=== PATIENT | male | born 1970 | race Caucasian/White ===

== ENCOUNTER → 2023-12-06 | Outpatient (CLI) | payer OTHER ==
--- NOTE | 2023-12-06 22:00 | XR ---
EXAMINATION TYPE: XR knee complete bilateral DATE OF EXAM: 12/06/2023 COMPARISON: NONE HISTORY: 53-year-old male right knee injury at work one year ago with pain. Left knee clicking and ac cliff pain. TECHNIQUE: 3 views each side FINDINGS: Right: Mild degenerative spurring in the patellofemoral compartment. There is a trace knee joint effusion. E xtensor mechanism appears intact. No acute fracture, subluxation, dislocation. Left: Mild degenerative spurring in the patellofemoral compartment. Trace knee joint effusion. Extensor mec hanism appears intact. No acute fracture, subluxation, dislocation. IMPRESSION: Mild degenerative spurring the patellofemoral compartment on both sides. Nonspecific trace knee joint effusions. No acute osseous abnormality seen.
--- NOTE | 2023-12-06 22:02 | XR ---
EXAMINATION TYPE: XR wrist complete 4 views LT, XR hand complete 3 views LT DATE OF EXAM: 12/06/2023 COMPARISON: NONE HISTORY: 53-year-old male pain after fall years ago FINDINGS: Wrist: The radiocarpal and distal radial ulnar joint as well as the midcarpal compartment appear intact. No acute fracture, subluxation, dislocation. Hand: No marginal erosions. Normal bone mineral density. No soft tissue calcifications. No acute fracture, subluxation, dislocation. IMPRESSION: Left wrist and hand without acute osseous abnormality seen.
--- NOTE | 2023-12-06 22:05 | XR ---
EXAMINATION TYPE: XR chest 2V, XR shoulder complete 3 views RT DATE OF EXAM: 12/06/2023 COMPARISON: None HISTORY: 53-year-old male heart flutter. M25.511. Right shoulder pain after trauma, fall 5 years ago. FINDINGS: Chest: The cardiomediastinal silhouette, aorta, and pulmonary vasculature are within normal limits. Some str rosita atelectasis at the left base. Mild hyperinflation may relate to depth of inspiration. Otherwise, lungs and pleural spaces are clear. Right shoulder: 1. Appearance of the AC joint but no abnormal step-off. Possible osseous excrescence or small loose b ashish near the region of the bicipital groove just below the lesser tuberosity. No acute fracture, subl uxation, dislocation seen. IMPRESSION: 1. Chest: Mild hyperinflation may relate to ductal inspiration or underlying emphysema. Clinically co rrelate. Otherwise, no acute cardiopulmonary process. 2. Right shoulder: Widened appearance of the AC joint suggests sequela of prior AC joint injury/sprai n. There is also either a 6 mm bony excrescence or loose body near the region of the bicipital groove .
== END | disposition home or self-care (01) ==
LOC: RADXRMAIN 14:55
PROVIDERS: ATTEND Pediatrics
DX: M25.511 Pain in right shoulder (principal); M25.569 Pain in unspecified knee; M25.532 Pain in left wrist; R07.9 Chest pain, unspecified
CPT/HCPCS: 71046

== ENCOUNTER → 2024-02-07 | Outpatient (CLI) | payer OTHER ==
--- NOTE | 2024-02-21 07:30 | EM ---
EVENT MONITOR The patient was monitored between the February 07, 2024 and February 13, 2024. FINDINGS: The baseline rhythm is a sinus mechanism. The average rate 80 beats per minute, minimum 50, maximum 163 beats per minute. Ventricular ectopic activity was present in form of rare single PVCs. No symptoms were reported. No atrial fibrillation was noted. MMBRANDONL / YANYN: [id number] /
== END | disposition home or self-care (01) ==
LOC: RADECHMAIN 08:08
PROVIDERS: ATTEND Pediatrics
DX: I49.3 Ventricular premature depolarization (principal)
CPT/HCPCS: 93225; 93226

== ENCOUNTER → 2024-05-10 | Outpatient (CLI) | payer OTHER ==
[2024-05-10 19:59] LABS: HCT 47.8 % (39.6-50.0); HGB 15.6 g/dL (13.0-17.0); MCH 29.5 pg (27.0-32.0); MCHC 32.6 g/dL (32.0-37.0); MCV 90.4 FL (80.0-97.0); NRBC Per 100 WBC 0 X 10*3/uL (0.00-0.01); Platelet Count 241 X 10*3/uL (140-440); RBC 5.29 X 10*6/uL (4.40-5.60); RDW 13.2 % (11.5-14.5); WBC 6.19 X 10*3/uL (4.50-10.00)
[2024-05-10 20:18] LABS: ALT 29 U/L (10-49); AST 27 U/L (14-35); Albumin 4.4 g/dL (3.8-4.9); Alkaline Phosphatase 54 U/L (41-126); BUN/Creat Ratio 15.56 Ratio (12.00-20.00); C Reactive Protein, High Sens 0.357 mg/L (0.000-3.000); Calcium 9.2 mg/dL (8.7-10.3); Carbon Dioxide 24.1 mmol/L (21.6-31.8); Chloride 103 mmol/L (96-109); Chol/HDL Ratio 3.04 Ratio; Globulin 2.2 g/dL (1.6-3.3); Glucose 107 mg/dL (70-110); LDL Cholesterol,Calculated 120.8 mg/dL (0.0-131.0); Potassium 4.6 mmol/L (3.5-5.5); Sodium 137 mmol/L (135-145); Total Bilirubin 0.4 mg/dL (0.3-1.2); Total Protein 6.6 g/dL (6.2-8.2); VLDL Calculation 18.22 mg/dL (5.00-40.00)
[2024-05-10 20:56] LABS: NT-Pro-B-Type Natriuretic Pept 83 pg/mL (0-125)
== END | disposition home or self-care (01) ==
LOC: LABWHC1 09:39
PROVIDERS: ATTEND Student in an Organized Health Care Education/Training Program
DX: E78.5 Hyperlipidemia, unspecified (principal); E11.9 Type 2 diabetes mellitus without complications; I10 Essential (primary) hypertension; I25.10 Atherosclerotic heart disease of native coronary artery without angina pectoris; I50.9 Heart failure, unspecified
CPT/HCPCS: 36415; 80053; 80061; 83036; 83695; 83880; 85027; 86141

== ENCOUNTER 2024-05-21 10:35 | Day surgery (SDC) | payer OTHER ==
[2024-05-17 10:09] VITALS: BMI 26.6
[~2024-05-21 10:35] MED LIST: LACTATED RINGERS 1,000 ML IV SCH; LIDOCAINE 1% (10MG/ML) FOR IV START INTRADERMA PRN
[2024-05-21] MEDS: IV FLUID CONTINUATION 1,000 ML IV ONE (12:45)
[2024-05-21 13:03] VITALS: RESP 16; TEMP 97.8
[2024-05-21 13:11] LABS: Glucose,Whole Blood 80 mg/dL (70-110)
[2024-05-21] MEDS ORDERED: LIDOCAINE 2% (PF) 20 MG/ML 5 ML VIAL ONE (13:18)
[2024-05-21] MEDS ORDERED: PROPOFOL 10 MG/ML 20 ML VIAL IV ONE (13:18)
--- NOTE | 2024-05-21 13:19 | P.GSHP ---
History of Present Illness H&P Date: 05/21/24 Chief Complaint: Colon cancer screening 54-year-old male here for colonoscopy. He has not had 1 previously. No bowel complaints. Patient does describe intermittent bleeding with hemorrhoids. Family history of colon cancer in a grandparent. Past Medical History Past Medical History: Hyperlipidemia Additional Past Medical History / Comment(s): Hemorrhoids, Seasonal allergies, left side of heart was slightly enlarged but was cleared-see's Dr. Cee, borderline diabetic- diet changes. History of Any Multi-Drug Resistant Organisms: None Reported Past Surgical History: No Surgical Hx Reported Past Anesthesia/Blood Transfusion Reactions: No Reported Reaction Smoking Status: Former smoker - Past Family History Father Family Medical History: Coronary Artery Disease (CAD), Hyperlipidemia Additional Family Medical History / Comment(s): Stents Mother Family Medical History: Vascular Disorder Medications and Allergies Home Medications Medication Instructions Recorded Confirmed Type Cetirizine HCl [Zyrtec] 10 mg PO DIRECTED PRN 05/17/24 05/21/24 History Fluticasone Nasal [place] [Flonase 1 spr NASAL DAILY 05/17/24 05/21/24 History Nasal [place]] Venlafaxine HCl ER [Effexor Xr] 37.5 mg PO DAILY 05/17/24 05/21/24 History Allergies Allergy/AdvReac Type Severity Reaction Status Date / Time No Known Allergies Allergy Verified 05/21/24 12:55 Surgical - Exam Vital Signs Temp Pulse Resp BP Pulse Ox 97.8 F 58 L 16 122/72 100 05/21/24 12:58 05/21/24 12:58 05/21/24 12:58 05/21/24 12:58 05/21/24 12:58 Physical exam: General: Well-developed, well-nourished HEENT: Normocephalic, sclerae nonicteric Abdomen: Nontender, nondistended Extremities: No edema Neuro: Alert and oriented Assessment and Plan (1) Colon cancer screening Narrative/Plan: Will proceed with colonoscopy at this time. Current Visit: Yes Status: Acute Code(s): Z12.11 - ENCOUNTER FOR SCREENING FOR MALIGNANT NEOPLASM OF COLON SNOMED Code(s): 550291001
--- NOTE | 2024-05-21 13:34 | P.PCN ---
Date of Procedure: 05/21/24 Procedure(s) Performed: PREOPERATIVE DIAGNOSIS: Colon cancer screening POSTOPERATIVE DIAGNOSIS: Internal hemorrhoids, mild diverticulosis PROCEDURE: Colonoscopy ANESTHESIA: MAC SURGEON: Walter Velásquez M.D. SPECIMENS: None ENDOSCOPIC PROCEDURE: The patient was placed on the endoscopy table in the left decubitus position. The Olympus colonoscope was inserted into the anus and passed under direct visualization to the base of the cecum. The appendiceal orifice was visualized. From that point the scope was slowly withdrawn inspecting all surfaces carefully. There were no neoplastic inflammatory or polypoid lesions throughout the cecum, ascending, transverse, descending, sigmoid and rectum. There was mild left-sided diverticulosis noted. Retroflexion revealed a internal hemorrhoid with mild inflammation. Digital rectal examination was otherwise normal. The patient was taken to the recovery room in stable condition per anesthesia guidelines. RECOMMENDATIONS: Resume diet. Increase fiber. Possible hemorrhoidal banding if hemorrhoid symptoms persist.
[2024-05-21 13:53] VITALS: BP 99/63; PULSE 63
== END 2024-05-21 14:26 | disposition home or self-care (01) ==
LOC: ORWHC2ENDO 10:35
PROVIDERS: ATTEND Surgery
DX: Z12.11 Encounter for screening for malignant neoplasm of colon (principal); K57.30 Diverticulosis of large intestine without perforation or abscess without bleeding; K64.8 Other hemorrhoids; Z80.0 Family history of malignant neoplasm of digestive organs; E78.5 Hyperlipidemia, unspecified; Z87.891 Personal history of nicotine dependence; Z79.899 Other long term (current) drug therapy
CPT/HCPCS: J2704; J2003; G0121; 45378